=== PATIENT | male | born 1945 | race Caucasian/White ===

== ENCOUNTER → 2017-07-12 | Outpatient (CLI) | payer MEDICARE, OTHER ==
[~2017-07-12] MED LIST: ASPI-1471 PO; ATOR10TA65 PO; CHOL10005 PO; CYAN20004 PO; EZET10TA41 PO; HYDR25SU51 RC; IBU600 PO; LOR5/325 PO; PANT20TA27 PO; PRAV20TA65 PO; ROSU10TA13 PO
[2017-07-12 14:51] LABS: PLATELET COUNT, AUTOMATED 251 K/uL (150-450)
== END ==
LOC: LAB 14:15
PROVIDERS: ATTEND Emergency Medicine
DX: G62.9 Polyneuropathy, unspecified (principal); R73.9 Hyperglycemia, unspecified; R79.89 Other specified abnormal findings of blood chemistry
CPT/HCPCS: 36415; 82040; 82247; 82310; 82374; 82435; 82565; 82607; 82728; 82947; 83036; 83540; 83550; 84075; 84132; 84155; 84295; 84450; 84460; 84520; 85025

== ENCOUNTER 2017-07-22 01:23 | Day surgery (SDC) | payer MEDICARE, OTHER ==
[2017-07-22] VITALS (7 sets, daily range): BP systolic 75–126; BP diastolic 62–91
[~2017-07-22] VITALS: Ht 177.8 cm; Wt 64.0 kg
[2017-07-22] MEDS ORDERED: PROPOFOL EMUL(*) 10MG/ML 20 ML 40 ML ONE (07:09)
[2017-07-22] MEDS ORDERED: LIDOCAINE/SOD BICARB 8.4% SYR ID ONE (08:10)
[2017-07-22] MEDS ORDERED: NORMOSOL R SOLN(*) 1000 ML BAG 1,000 ML IV PRN (08:10)
--- NOTE | 2017-07-22 08:16 | Post Operative Progress Note ---
Post Operative Progress Note Date: Jul 22, 2017 Time: 09:28 Surgeon: alberto Anesthesia: dr beltran Pre-Op Diagnosis: rectal pain Post-Op Diagnosis: sigmoid diverticuloisis Procedure(s): colonoscopy DELLA HAYES MD Jul 22, 2017 08:16
--- NOTE | 2017-07-22 08:16 | Short(Outpt) Discharge Summary ---
Discharge Summary Reason for Hosp/Final Diag: (1) Rectal pain Hospital Course & Plan: sigmoid diverticulosis Departure Discharge to: Home Discharge Instructions Home Meds Active Scripts Ezetimibe (ZETIA) 10 Mg Tablet, 10 MG PO DAILY, #30 TAB 0 Refills Prov:MALIHA LAMA MD 07/02/17 Cyanocobalamin (Vitamin B-12) (Vitamin B-12) 2,000 Mcg Tablet, 1 TAB PO DAILY, # 30 TAB Prov:MALIHA LAMA MD 06/04/16 Reported Medications Aspirin (ASPIR 81) 81 Mg Tablet.dr, 81 MG PO QDAY, TAB 07/15/16 Cholecalciferol (Vitamin D3) (VITAMIN D3) 1,000 Unit Tablet, 1000 UNIT PO, TAB 05/28/16 Discontinued Scripts Hydrocortisone Acetate (ANUSOL-HC) 25 Mg Supp.rect, 25 MG RC BID, #14 SUPP.RECT 0 Refills Prov:MALIHA LAMA MD 05/18/17 Diet: High Fiber Activity: As Tolerated DELLA HAYES MD Jul 22, 2017 08:16
--- NOTE | 2017-07-22 15:56 | OPERATIVE REPORT 1 ---
EVENT DATE: July 22, 2017 SURGEON: Kareem Shankar MD ANESTHESIOLOGIST: Mina Salazar MD ANESTHESIA: Sedation. PREOPERATIVE DIAGNOSIS Rectal pain. POSTOPERATIVE DIAGNOSES 1. Sigmoid diverticulosis. 2. Otherwise normal exam. PROCEDURE PERFORMED Colonoscopy. DESCRIPTION OF PROCEDURE The patient was placed in the left lateral decubitus position and given intravenous sedation. Perianal examination was unremarkable. No inflammation, irritation. No external hemorrhoidal skin tags. No prolapsing hemorrhoids. No skin breakdown. Digital exam, I cannot palpate any masses. No inflammation was noted. Flexible colonoscope was inserted. We retroflexed the scope and looked at the area just above the dentate line. No abnormalities were noted. Hemorrhoids were normal in appearance. No tags or excessive hemorrhoids were noted. No inflammation, irritation. No tears. We then completed the colonoscopy. We advanced to the cecum. He had an excellent bowel prep. Ileocecal valve identified. We retroflexed in the cecum and then slowly withdrew the scope. Right colon appeared to be normal, as did the transverse and descending colon. He had some diverticula in the sigmoid colon. No evidence of diverticulitis. The patient tolerated the procedure well. No apparent complication. SUJATHA
== END 2017-07-22 10:40 | disposition home or self-care (01) ==
LOC: OR 01:23
PROVIDERS: ATTEND Surgery
DX: K57.30 Diverticulosis of large intestine without perforation or abscess without bleeding (principal)
CPT/HCPCS: 00811; 45378; J2704

== ENCOUNTER 2017-07-30 07:54 | Outpatient (RCR) | payer MEDICARE, OTHER ==
[2017-07-30 08:04] VITALS: BP 126/76
[2017-07-30] MEDS ORDERED: VITA1CAP46 PO (08:08)
--- NOTE | 2017-07-30 17:16 | ONCOLOGY CONSULTATION ---
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 HISTORY OF PRESENT ILLNESS Patient is a 71-year-old male who claimed he has a family history of hemochromatosis on the maternal side. Patient presented with neuropathic symptoms involving both lower extremities with numbness around the skin of the perianal region saddle area. 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 He had iron studies done recently which showed serum iron 113, TIBC 245, iron saturation 46.1%, and ferritin 89. His liver enzymes are totally normal. Patient is a never smoker. He quit alcohol in 1979. PAST MEDICAL HISTORY Hypercholesterolemia. PAST SURGICAL HISTORY 1. Skin cancer removal. 2. Dupuytren contracture surgery. 3. Hernia repair. 4. Cholecystectomy. 5. Tooth implant. 6. Cataract, left eye. FAMILY HISTORY Negative for cancer or blood diseases, but he mentioned that there may be hemochromatosis on the maternal side. SOCIAL HISTORY Patient is with two sons. 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 He is a never smoker. He quit alcohol in 1979. Denies any abuse of illicit drugs. CURRENT MEDICATIONS 1. Zetia 10 mg daily. 2. Aspirin 81 mg daily. 3. Vitamin B12 2000 mcg daily. 4. Vitamin D3 1000 units daily. ALLERGIES STATINS, which cause weakness in his muscles. REVIEW OF SYSTEMS CONSTITUTIONAL: No appetite or weight change. Patient has some chills. No fever or sweating. No recent infection. HEENT: Ears: No tinnitus or hearing problem. Nose: No nasal discharge or epistaxis. Throat: No sore throat or mouth ulcers. Eyes: No diplopia or visual changes. RESPIRATORY: No shortness of breath. No cough, expectoration or hemoptysis. CARDIOVASCULAR: No chest pain, orthopnea, or paroxysmal nocturnal dyspnea (PND) . No edema. No palpitations. GASTROINTESTINAL: No nausea or vomiting. No diarrhea or constipation. No change in bowel movements. No heartburn or swallowing difficulties. No abdominal pain. No jaundice. No hematemesis, melena or rectal bleeding. GENITOURINARY: No hematuria or dysuria. MUSCULOSKELETAL: No pain in the muscles, joints or bones. NEUROLOGICAL: He has tingling and numbness in the hands and toes, and the numbness actually spreads along the lower extremities involving the perianal area.. No headaches or convulsions. HEMATOLOGIC/LYMPHATIC: No bleeding or easy bruising. He is weak, tired and fatigued. No enlarged lymph nodes. SKIN: No skin rash or lumps. PSYCHIATRIC: No anxiety or depression. PHYSICAL EXAMINATION GENERAL: Looks stable. Well-developed, well-nourished, and in no acute distress. VITAL SIGNS: Blood pressure 126/76, pulse 60 per minute, respirations 16 per minute, temperature 97, pulse ox 93% on room air. HEENT: Head: Atraumatic. No sinus tenderness to palpation. Eyes: No icterus or conjunctivitis. Mouth and throat: No oral thrush or mucositis. NECK: Supple. No cervical or supraclavicular lymphadenopathy. LUNGS: Clear to auscultation and percussion bilaterally. HEART: Regular rate and rhythm. No gallops, murmurs, clicks or rubs. ABDOMEN: Soft and lax. No tenderness. No hepatosplenomegaly. No masses. EXTREMITIES: No cyanosis, clubbing or edema. LYMPHATICS: No peripheral lymphadenopathy. NEUROLOGICAL: Conscious, alert and oriented times three. No focal motor or sensory deficits. PSYCHIATRIC: Mood and affect appear normal. SKIN: No skin rash, bruise or purpuric eruption. ASSESSMENT 1. 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 Patient is considered a carrier and his iron studies are totally normal, as well as his liver enzymes. There is no indication of phlebotomy and I do not think there is a relationship between being a carrier for hemochromatosis and his neuropathic symptoms, especially with numbness around the saddle area of the skin. I recommended to check his iron studies once a year, and if the patient will have iron overload I will be more than happy to see him at that time. Patient was advised to avoid alcohol intake, because I see the carriers of hemochromatosis when they drink heavily they will behave like diseases persons, and the patient already quit alcohol in 1979. Patient will continue followup with Dr. Multani. I will be more than happy to see him in the future if required. 2. Numbness around the perianal area. Patient needs to be seen by a neurologist to rule out the possibility of disease of the cauda equina. PLAN 1. Continue followup with Dr. Multani. 2. Recommend iron studies with ferritin to be checked once yearly. 3. Avoid heavy alcohol intake. 4. Patient to contact us for any new concerns or complaints. SUJATHA
== END 2017-08-03 08:32 | disposition home or self-care (01) ==
LOC: ONC 07:54
PROVIDERS: ATTEND Internal Medicine Hematology
DX: E83.119 Hemochromatosis, unspecified (principal); R20.0 Anesthesia of skin; E78.00 Pure hypercholesterolemia, unspecified; R53.1 Weakness; R53.83 Other fatigue
CPT/HCPCS: 99202

== ENCOUNTER → 2018-07-29 | Outpatient (CLI) | payer MEDICARE, OTHER ==
[~2018-07-29] MED LIST changes: +AZEL137S NS; +DIPH0.5S2 IM; -ROSU10TA13 PO; +ROSU10TA5 PO; +VITA1CAP46 PO
--- NOTE | 2018-07-29 15:11 | RADIOLOGY IMAGING REPORT ---
FACILITY: [facility] - [place] PATIENT NAME: Cheo Roberts : 1945 MR: [id number] V: [id number] EXAM DATE: ORDERING PHYSICIAN: MARTIN NULL TECHNOLOGIST: Location: [facility] [place] Patient: Cheo Roberts : 1945 Visit/Account:[id number] Date of Sevice: 07/29/2018 US ABD LIMITED ULTRASOUND HISTORY: Incomplete bladder emptying COMPARISON: None. FINDINGS: Urinary bladder prevoid volume measured 235 mL. The post for residual was 3.3 mL. Bilateral uretera l jets are present. Prostate gland measures 2.5 x 3.5 x 4.4 cm IMPRESSION: Post void bladder residual 3.3 mL. Report Dictated By: Divina Pinedo MD at 07/29/2018 2:58 PM Report E-Signed By: Divina Pinedo MD at 07/29/2018 3:06 PM WSN:[id number]
== END ==
LOC: US 00:33
DX: R39.14 Feeling of incomplete bladder emptying (principal)
CPT/HCPCS: 76705

== ENCOUNTER → 2018-08-12 | Outpatient (CLI) | payer MEDICARE, OTHER ==
[2018-08-12 09:55] LABS: PLATELET COUNT, AUTOMATED 278 K/uL (150-450)
[2018-08-12 10:48] LABS: LDL CHOLESTEROL 160 mg/dl
== END ==
LOC: LAB 09:22
PROVIDERS: ATTEND Emergency Medicine
DX: E78.00 Pure hypercholesterolemia, unspecified (principal)
CPT/HCPCS: 36415; 82040; 82247; 82310; 82374; 82435; 82465; 82565; 82947; 83718; 84075; 84132; 84155; 84295; 84450; 84460; 84478; 84520; 85025